=== PATIENT | female | born 1985 | race Caucasian/White ===

== ENCOUNTER 2020-04-28 06:19 | Emergency (ER) | payer MEDICAID, SELFPAY ==
[2020-04-28 06:41] VITALS: BP 144/64; PULSE 90; RESP 15; TEMP 37; O2SAT 98; BMI 21.7
--- NOTE | 2020-04-28 06:51 | ED_ITS ---
HPI - Alcohol General Chief Complaint: ETOH/Substance Use Stated Complaint: etoh Time Seen by Provider: 04/28/20 06:49 Source: patient Mode of arrival: EMS Limitations: no limitations History of Present Illness HPI narrative: Patient comes emergency room complaining of EtOH. Patient states that she does not remember how she got here. At this time, patient is awake, arousable but very somnolent and unable to give any significant history. Patient states that otherwise physically she has no physical complaints. Related Data Allergies Allergy/AdvReac Type Severity Reaction Status Date / Time haloperidol [From HALDOL] Allergy Unknown SEVERE EPS Verified 04/28/20 07:01 oxcarbazepine Allergy Unknown RASH Verified 04/28/20 07:01 [From TRILEPTAL] prazosin [PRAZOSIN] Allergy Unknown LEG PAIN Verified 04/28/20 07:01 CRAMP Review of Systems Review of Systems: Yes Unobtainable due to mental condition (Intoxicated) PMFSH Past Medical History Medical History Depression ETOH abuse PTSD (post-traumatic stress disorder) Surgical History No history of previous surgery Social History Social History Alcohol intake: current Alcohol intake frequency: 3 or more drinks per day Smoking Status: Heavy tobacco smoker Use of substances other than those prescribed or required for medical reasons: Yes Substance Use Type: Crack/Cocaine, Marijuana and Prescription Drugs Substance Use Frequency: Chronic Longstanding Advance Directives: No Advance Directives Information Provided: No Physical Exam Vital Signs: Vital Signs: Last Vital Signs Temp 98.6 F 04/28/20 06:41 Pulse 90 04/28/20 06:41 Resp 15 04/28/20 06:41 BP 144/64 H 04/28/20 06:41 Pulse Ox 98 04/28/20 06:41 Body Mass Index 21.7 Appearance: Alert. Oriented X3. Very somnolent, easily arousable, intoxicated Eyes: Pupils equal, round and reactive to light. ENT: Pharynx normal. Neck: Normal inspection. Neck supple. No lymph nodes noted. No crepitus CVS: Normal heart rate and rhythm. Pulses normal. Normal S1 and S2 Respiratory: No respiratory distress. Breath sounds normal. No Wheezing. No rales Abdomen: Soft and nontender. No rigidity. No distention. good BS x4 Skin: Skin warm and dry. Normal skin color. Normal skin turgor. Extremities: No lower extremity edema. No lower extremity edema. No Lacerations. No Rash Neuro: Oriented X 3. No motor deficit. No sensory deficit. Moving all extermities. No slurred speech. Course Course Course Narrative: Patient is now awake, alert and oriented x3, no acute distress, calm, cooperative. Patient denies suicidal and homicidal ideation. Patient states she feels better. Patient declined [facility] consult or care team/recovery room rn. Urinalysis/U tox/ test pending. Patient stable she feels well, does not want to wait for a urine test. Discharge Plan Discharge Clinical Impression: Alcoholic intoxication Qualifiers: Complication of substance-induced condition: uncomplicated Qualified Code(s): F10.920 - Alcohol use, unspecified with intoxication, uncomplicated Patient Disposition: Home, Self-Care Instructions: Alcohol Intoxication (ED) Additional Instructions: Please follow-up with your primary care physician tomorrow. If you have any worsening or new symptoms, please return to the emergency room or call 911
--- NOTE | 2020-04-28 07:38 | PC.NURSE ---
report taken from elliot saba pt here after pd bringing in pt for wandering, admits to polysubstance use. easily arousable to voice and light tactile stimuli. denies si/hi. resting comfortably in stretcher, rr even unlabored. wctm.
== END 2020-04-28 15:56 | disposition home or self-care (01) ==
PROVIDERS: Emergency Provider Emergency Medicine; PCP Internal Medicine
DX: F10.920 Alcohol use, unspecified with intoxication, uncomplicated (principal); F17.200 Nicotine dependence, unspecified, uncomplicated; F14.90 Cocaine use, unspecified, uncomplicated; F12.90 Cannabis use, unspecified, uncomplicated; Z71.6 Tobacco abuse counseling; Z71.41 Alcohol abuse counseling and surveillance of alcoholic
CPT/HCPCS: 99285